=== PATIENT | female | born 1965 | race Caucasian/White ===

== ENCOUNTER 2021-01-27 10:12 | Day surgery (SDC) | payer MEDICAID ==
[~2021-01-27 10:12] MED LIST: Metoclopramide 10 MG/2 ML SDV IV PRN
[2021-01-27] MEDS: Sodium Chloride 0.9% 1,000 ML IV SCH (10:35)
[2021-01-27] MEDS ORDERED: Midazolam 1 MG/ML 2 ML SDV ONE (12:00)
[2021-01-27] MEDS ORDERED: Propofol 200 MG/20 ML SDV ONE (12:00)
--- NOTE | 2021-01-27 19:17 | OR ---
DATE OF OPERATION: 01/27/2021 SURGEON: Zac Diaz MD PREOPERATIVE DIAGNOSIS: Screening colonoscopy. POSTOPERATIVE DIAGNOSIS: Screening colonoscopy. PROCEDURE: Colonoscopy. ANESTHESIA: MAC. ESTIMATED BLOOD LOSS: None. COMPLICATIONS: None. INDICATION FOR THE PROCEDURE: The patient is a 56-year-old female, here today for her first colonoscopy. Denies any change in bowel habits. No family history of colon cancer. She has otherwise been doing well. DESCRIPTION OF PROCEDURE: Informed consent was obtained with the patient. The patient was taken to the operating room and placed on table in left lateral decubitus position. Monitored anesthesia care was administered. Digital rectal exam was performed and was normal. Colonoscope was then advanced through the anus and directed toward the cecum. Cecum was reached and identified by appendiceal orifice and ileocecal valve. Colonoscope was then slowly withdrawn. No polyps, no masses. No areas of ischemia or inflammation identified. No diverticula noted. Rectum was also otherwise unremarkable. Colonoscope was then fully withdrawn. FINDINGS: Normal colonoscopy. RECOMMENDATIONS: Would recommend repeat screening colonoscopy in 10 years. YENNY/JEFFERSON /[id number]
== END 2021-01-27 13:10 | disposition home or self-care (01) ==
LOC: LB.SDS 10:12
PROVIDERS: ATTEND Surgery
DX: Z12.11 Encounter for screening for malignant neoplasm of colon (principal); I10 Essential (primary) hypertension; J45.909 Unspecified asthma, uncomplicated; Z88.1 Allergy status to other antibiotic agents
CPT/HCPCS: J2250; J2704; J7030